=== PATIENT | female | born 1950 | race Caucasian/White ===

== ENCOUNTER → 2016-12-07 | Outpatient (CLI) | payer OTHER ==
[~2016-12-07] MED LIST: ASPIRIN325 MG PO; HYDROCHLOROTHIA25 MG PO; LISINOPRIL40 MG PO; LORTAB 7.5-3251 EACH PO; METOPROLOL TART25 MG PO; NITROSTAT 0.40.4 MG SL; PERCOCET 5/325 T1 EA PO; PHENERGAN 12.12.5 M1 PO; PLAVIX 75 MG TA75 MG PO; SERTRALINE HCL100 MG PO; SIMVASTATIN40 MG PO; STOOL SOFTENER250 MG PO; ZYLOPRIM 100 M100 MG PO; ZYRTEC10 MG PO
== END ==
LOC: HEART 5 08:42
DX: R07.9 Chest pain, unspecified (principal); I25.10 Atherosclerotic heart disease of native coronary artery without angina pectoris; R06.02 Shortness of breath; I34.0 Nonrheumatic mitral (valve) insufficiency
CPT/HCPCS: 78452; 93306; A9502; J2785

== ENCOUNTER 2021-03-17 18:31 | Emergency (ER) | payer MEDICARE ==
[~2021-03-17 18:31] MED LIST changes: -ASPIRIN325 MG PO; -SERTRALINE HCL100 MG PO; -ZYLOPRIM 100 M100 MG PO
[2021-03-17 19:32] LABS: HEMOGLOBIN 14.8 gm/dl (12.3-15.3); RED BLOOD COUNT 5.01 M/UL (4.00-5.10); WHITE BLOOD COUNT 2.6 K/UL (4.5-11.0)
[2021-03-17] MEDS ORDERED: PROAIR HFA8.5 GM INH (21:19)
== END 2021-03-17 22:29 | disposition home or self-care (01) ==
LOC: ER1 18:31
PROVIDERS: Family Medicine
DX: U07.1 COVID-19 (principal); I10 Essential (primary) hypertension
CPT/HCPCS: 0240U; 71045; 80053; 82550; 82553; 83605; 83690; 83735; 83874; 84100; 84484; 85025; 86140; 87040; 93005; 94664; 96374; 99284; J1100

== ENCOUNTER 2021-03-23 09:22 | Inpatient (IN) | payer MEDICARE ==
[~2021-03-23] VITALS: Ht 157.5 cm; Wt 98.0 kg
[~2021-03-23 09:22] MED LIST changes: +PROAIR HFA8.5 GM INH
[2021-03-23 10:19] LABS: HEMOGLOBIN 15.3 gm/dl (12.3-15.3); RED BLOOD COUNT 5.15 M/UL (4.00-5.10); WHITE BLOOD COUNT 7.7 K/UL (4.5-11.0)
[2021-03-24 04:39] LABS: HEMOGLOBIN 14.5 gm/dl (12.3-15.3); RED BLOOD COUNT 4.89 M/UL (4.00-5.10); WHITE BLOOD COUNT 6.8 K/UL (4.5-11.0)
[2021-03-24] MEDS ORDERED: ZYLOPRIM 300 M300 MG PO (10:45)
[2021-03-24] MEDS ORDERED: ZOLOFT50 MG PO (10:47)
[2021-03-24] MEDS ORDERED: ASPIRIN EC81 MG PO (10:50)
[2021-03-24] MEDS ORDERED: ZESTRIL 40 MG T40 MG PO (16:35)
[2021-03-24] MEDS ORDERED: HYDROCHLOROTHIA25 MG PO (16:36)
[2021-03-24] MEDS ORDERED: VITAMIN A2400 MCG PO (16:43)
[2021-03-24] MEDS ORDERED: VITAMIN D3125 MCG PO (16:43)
[2021-03-24] MEDS ORDERED: VITAMIN C500 M4 PO (16:44)
[2021-03-24] MEDS ORDERED: VITAMIN E90 MG PO (16:44)
[2021-03-25 06:34] LABS: HEMOGLOBIN 15.6 gm/dl (12.3-15.3); RED BLOOD COUNT 5.21 M/UL (4.00-5.10)
[2021-03-26 05:39] LABS: HEMOGLOBIN 13.6 gm/dl (12.3-15.3); RED BLOOD COUNT 4.53 M/UL (4.00-5.10); WHITE BLOOD COUNT 6.3 K/UL (4.5-11.0)
[2021-03-27 04:29] LABS: HEMOGLOBIN 12.9 gm/dl (12.3-15.3); RED BLOOD COUNT 4.41 M/UL (4.00-5.10); WHITE BLOOD COUNT 5.9 K/UL (4.5-11.0)
[2021-03-27 04:47] LABS: BUN/CREATININE RATIO 32 (0-10)
[2021-03-28 04:15] LABS: HEMOGLOBIN 13.6 gm/dl (12.3-15.3); RED BLOOD COUNT 4.63 M/UL (4.00-5.10); WHITE BLOOD COUNT 6.3 K/UL (4.5-11.0)
[2021-03-29 03:35] LABS: HEMOGLOBIN 13.4 gm/dl (12.3-15.3); RED BLOOD COUNT 4.85 M/UL (4.00-5.10); WHITE BLOOD COUNT 8.8 K/UL (4.5-11.0)
[2021-03-30 03:20] LABS: HEMOGLOBIN 12.4 gm/dl (12.3-15.3); RED BLOOD COUNT 4.45 M/UL (4.00-5.10); WHITE BLOOD COUNT 8.2 K/UL (4.5-11.0)
[2021-03-31 08:02] LABS: HEMOGLOBIN 13.7 gm/dl (12.3-15.3); WHITE BLOOD COUNT 8.9 K/UL (4.5-11.0)
[2021-03-31 08:06] LABS: RED BLOOD COUNT 4.95 M/UL (4.00-5.10)
[2021-04-01 04:55] LABS: HEMOGLOBIN 12.3 gm/dl (12.3-15.3); WHITE BLOOD COUNT 7.6 K/UL (4.5-11.0)
[2021-04-01 04:58] LABS: RED BLOOD COUNT 4.25 M/UL (4.00-5.10)
[2021-04-04] MEDS ORDERED: PROVENTIL HFA6.7 GM INH (11:16)
[2021-04-04] MEDS ORDERED: ELIQUIS2.5 MG PO (11:16)
[2021-04-04] MEDS ORDERED: AMLODIPINE BESYL5 MG PO (11:25)
--- NOTE | 2021-04-04 11:34 | NUR ---
ROOM AIR SAT 82 PERCENT ON ROOM AIR.
== END 2021-04-04 14:31 | disposition home or self-care (01) | DRG 177 ==
LOC: ER1 09:22 → MED SURG 4 10:25 → CDU 10:25 → MED SURG 4 23:25
PROVIDERS: Emergency Medicine; Internal Medicine; ADMIT Internal Medicine
PROC: 8E0ZXY6 Isolation (ICD-10-PCS; principal; 2021-03-23)
PROC: XW033E5 Introduction of Remdesivir Anti-infective into Peripheral Vein, Percutaneous Approach, New Technology Group 5 (ICD-10-PCS; 2021-03-23)
PROC: 3E0333Z Introduction of Anti-inflammatory into Peripheral Vein, Percutaneous Approach (ICD-10-PCS; 2021-03-23)
DX: U07.1 COVID-19 (principal); J12.82 Pneumonia due to coronavirus disease 2019; J96.01 Acute respiratory failure with hypoxia; J15.9 Unspecified bacterial pneumonia; N17.9 Acute kidney failure, unspecified; I25.10 Atherosclerotic heart disease of native coronary artery without angina pectoris; I10 Essential (primary) hypertension; G89.29 Other chronic pain; E87.6 Hypokalemia; M54.9 Dorsalgia, unspecified; E78.5 Hyperlipidemia, unspecified; F32.9 Major depressive disorder, single episode, unspecified; M10.9 Gout, unspecified; E66.9 Obesity, unspecified; T44.7X5A Adverse effect of beta-adrenoreceptor antagonists, initial encounter; I49.5 Sick sinus syndrome; Z68.39 Body mass index [BMI] 39.0-39.9, adult; Z82.49 Family history of ischemic heart disease and other diseases of the circulatory system; Z95.1 Presence of aortocoronary bypass graft; Z90.49 Acquired absence of other specified parts of digestive tract
CPT/HCPCS: 36415; 36600; 71045; 80048; 80053; 80202; 82550; 82553; 82728; 82803; 82962; 83036; 83605; 83615; 83735; 83874; 83880; 84100; 84132; 84484; 84550; 85025; 85027; 85379; 86140; 87040; 87070; 87081; 87205; 93005; 94640; 94664; 94760; 96374; 96375; 97110; 97116; 97161; 97166; 97530-GP-CQ; 99285; C1751; J0692; J0696; J1100; J1650; J3370; J7030; J7070

== ENCOUNTER → 2021-09-04 | Outpatient (CLI) | payer MEDICARE ==
[~2021-09-04] MED LIST changes: +AMLODIPINE BESYL5 MG PO; +ASPIRIN EC81 MG PO; +ELIQUIS2.5 MG PO; +PROVENTIL HFA6.7 GM INH; +VITAMIN A2400 MCG PO; +VITAMIN C500 M4 PO; +VITAMIN D3125 MCG PO; +VITAMIN E90 MG PO; +ZESTRIL 40 MG T40 MG PO; +ZOLOFT50 MG PO; +ZYLOPRIM 300 M300 MG PO
== END ==
LOC: KOH-I 09:31
DX: R22.43 Localized swelling, mass and lump, lower limb, bilateral (principal)
CPT/HCPCS: 93970